=== PATIENT | male | born 1975 | race Caucasian/White ===

== ENCOUNTER → 2019-04-10 10:09 | Outpatient (CLI) | payer OTHER, SELFPAY ==
--- NOTE | 2019-04-10 | DI.CT.S_ITS ---
PROCEDURE: CT ABDOMEN PELVIS WO CON INDICATIONS: Calculus of kidney TECHNIQUE: Noncontrast 5 mm thick sections acquired from the diaphragms to the symphysis. 5 mm thick coronal and sagittal reformats were then performed. For radiation dose reduction, the following was used: automated exposure control, adjustment of mA and/or kV according to patient size. COMPARISON: None. FINDINGS: Image quality: Excellent. Lung bases: Heart size is normal. There is partial visualization of thickening along the right oblique fissure anteriorly, as on series 3 image 1 that measures 6 mm. A small hiatal hernia is incidentally noted. Urinary system: Both kidneys are normal in size. No kidney stones. No hydronephrosis or perinephric fat stranding. Both ureters appear non-dilated throughout their expected courses. Bladder wall thickness is normal; no calcified bladder stones. Other solid organs: Liver is normal in size. Gallbladder has been removed. Pancreas is normal in contours. Spleen is normal in size. No adrenal nodules. Peritoneum and bowel: Gastric bypass changes are seen. Unenhanced bowel loops demonstrate normal wall thickness and caliber. No free fluid or air. Incidental note is made of a normal-appearing appendix. Nodes and vessels: No retroperitoneal or mesenteric adenopathy by size criteria. Aorta and inferior vena cava are normal in caliber. Abdominal wall: No ventral hernias. Pelvis: No free pelvic fluid. No significant inguinal hernias or adenopathy. Bones: No suspicious bony lesions. No vertebral body compression fractures. Focal L5-S1 facet arthropathy can be seen. IMPRESSION: No kidney stones or hydronephrosis can be seen. There is a 6 mm focus of thickening along the right minor fissure, which is regarded to be less likely benign. However, as a conservative measure, please consider a dedicated chest CT for further evaluation for additional potential pulmonary nodules. Incidental note is made of: Small hiatal hernia Cholecystectomy Gastric bypass change Normal appendix Focal facet arthropathy at L5-S1. Dictated by: Todd Agrawal M.D. on 04/10/2019 at 10:11 Approved by: Todd Agrawal M.D. on 04/10/2019 at 10:16
== END ==
PROVIDERS: Family Provider Specialist; PCP Specialist; Visit Provider Urology
DX: N20.0 Calculus of kidney (principal); K44.9 Diaphragmatic hernia without obstruction or gangrene; M47.817 Spondylosis without myelopathy or radiculopathy, lumbosacral region; Z90.49 Acquired absence of other specified parts of digestive tract; Z98.84 Bariatric surgery status
CPT/HCPCS: 74176

== ENCOUNTER → 2022-03-19 09:15 | Outpatient (CLI) | payer OTHER, SELFPAY ==
--- NOTE | 2022-03-19 09:16 | DI.RAD.S_ITS ---
PROCEDURE: XR KNEE LT 3V INDICATIONS: LEFT KNEE PAIN TECHNIQUE: 3 views of the knee were acquired. COMPARISON: None. FINDINGS: Bones: No fractures or dislocations. No suspicious bony lesions. Tricompartment osteophytes. Soft tissues: No joint effusion. No suspicious soft tissue calcifications. IMPRESSION: Degenerative arthritis. No evidence acute bony abnormality of the left knee. If clinical suspicion and/or symptoms persist, further assessment with repeat plain films, or advanced imaging (e.g., CT, MRI, or bone scan) may be helpful for further assessment. Dictated by: Kavon Page M.D. on 03/19/2022 at 9:46 Approved by: Kavon Page M.D. on 03/19/2022 at 9:47
== END ==
PROVIDERS: Family Provider Specialist; PCP Internal Medicine; Referring Provider Physical Medicine & Rehabilitation; Visit Provider Physical Medicine & Rehabilitation
DX: M17.12 Unilateral primary osteoarthritis, left knee (principal); M25.562 Pain in left knee; M54.16 Radiculopathy, lumbar region; M25.551 Pain in right hip; M25.552 Pain in left hip; F90.9 Attention-deficit hyperactivity disorder, unspecified type; F41.9 Anxiety disorder, unspecified; F32.9 Major depressive disorder, single episode, unspecified
CPT/HCPCS: 73562; 99214

== ENCOUNTER → 2022-04-29 18:52 | Outpatient (CLI) | payer OTHER, SELFPAY ==
--- NOTE | 2022-04-29 18:55 | DI.MRI.S_ITS ---
PROCEDURE: MR LUMBAR SPINE WO CON INDICATIONS: Lumbar radiculopathy TECHNIQUE: Noncontrast sagittal T1 spin echo and T2 fast echo, sagittal STIR, and T2 fast spin echo through the lumbar spine. In cases with scoliosis, additional coronal T2 fast spin echo may be performed. COMPARISON: [facility], RG, XR L-SPINE 2-3V, 04/21/2021, 9:44. FINDINGS: Image quality: Excellent. Alignment and Curvature: 5 lumbar type vertebral bodies are present by plain film. Roughly 2 mm of retrolisthesis of L3 on L4. Bone Marrow: Marrow is of normal overall signal. No acute vertebral body compression fractures. Minimal reactive signal throughout the endplates of the lumbar and lower thoracic spine. Spinal Cord: Conus medullaris terminates at the L1 level. Visualized cord demonstrates normal signal and size. Paraspinous Soft Tissues: No paravertebral masses. T12-L1: Normal appearance. L1-L2: Normal appearance. L2-L3: Mild disc desiccation and diffuse disc bulge. Mild facet and ligamentum flavum hypertrophy. Mild canal stenosis. No foraminal stenosis. L3-L4: Mild disc desiccation and diffuse disc bulge. Mild facet and ligamentum flavum hypertrophy. Mild epidural lipomatosis. Mild canal stenosis. Mild bilateral foraminal stenosis. L4-L5: Mild disc desiccation. Mild facet and ligamentum flavum hypertrophy. Mild canal stenosis. Mild bilateral foraminal stenosis. L5-S1: Moderate bilateral facet hypertrophy. No significant canal, or foraminal stenosis. IMPRESSION: 1. Multilevel degenerative disc and facet disease, as well as ligamentum flavum hypertrophy and epidural lipomatosis. 2. Mild multilevel canal and foraminal stenoses. No neural impingement. Dictated by: Marcie Bowden M.D. on 04/30/2022 at 8:20 Approved by: Marcie Bowden M.D. on 04/30/2022 at 8:22
== END ==
PROVIDERS: Family Provider Specialist; PCP Internal Medicine; Referring Provider Physical Medicine & Rehabilitation; Visit Provider Physical Medicine & Rehabilitation
DX: M51.16 Intervertebral disc disorders with radiculopathy, lumbar region (principal); M48.061 Spinal stenosis, lumbar region without neurogenic claudication
CPT/HCPCS: 72148

== ENCOUNTER → 2024-08-28 06:43 | Outpatient (CLI) | payer OTHER, SELFPAY ==
[2024-08-28 08:19] LABS: Add Manual Diff / Slide Review NO; Basophils Absolute Auto 0 /uL (0-100); Basophils Percent Auto 0.7 % (0-2); Eosinophils Absolute Auto 200 /uL (0-450); Eosinophils Percent Auto 3.1 % (2-4); Hematocrit 42.7 % (41-53); Hemoglobin 14.9 g/dL (13.5-17.5); Lymphocytes Absolute Auto 1600 /uL (1100-4500); Lymphocytes Percent Auto 28.3 % (25-40); Mean Corpuscular Hemoglobin 32.9 PG (26-34); Monocytes Absolute Auto 500 /uL (0-900); Monocytes Percent Auto 8.7 % (3-14); Neutrophils Absolute Auto 3200 /uL (1500-7000); Neutrophils Percent Auto 59.2 % (50-75); Platelet Count 316 X10^3/uL (150-400); Red Blood Cell Count 4.54 X10^6/uL (4.5-5.9); Red Cell Distribution Width 12.5 % (11.6-14.8); White Blood Cell Count 5.5 X10^3/uL (4.5-11.0)
[2024-08-28 08:44] LABS: Alanine Aminotransferase 15 IU/L (<50); Albumin 4.7 g/dL (3.5-5.0); Albumin Globulin Ratio 1.9 (1.0-2.8); Alkaline Phosphatase 76 U/L (38-126); Aspartate Aminotransferase 23 IU/L (17-59); BUN Creatinine Ratio 16.8 (6-22); Bilirubin Total 0.5 mg/dL (0.2-1.3); Blood Urea Nitrogen 20 mg/dL (9-20); Calcium 10.3 mg/dL (8.4-10.2); Carbon Dioxide 31 mmol/L (22-32); Chloride 101 mmol/L (98-107); Cholesterol 175 mg/dL (140-199); Estimated Glomerular Filt Rate > 60 mL/min (>60); Globulin 2.5 g/dL (1.7-4.1); Glucose 101 mg/dL (70-100); HDL Cholesterol 57 mg/dL (40-60); HEMOLYSIS < 15 (0-50); LDL Cholesterol Calculated 92 mg/dL (<100); Potassium 4.8 mmol/L (3.4-5.1); Sodium 140 mmol/L (137-145); Total Protein 7.2 g/dL (6.3-8.2); Triglycerides 129 mg/dL (35-150)
[2024-08-29 08:36] LABS: Var-Zoster Immunity Screen Reactive (Non Reactive)
== END ==
PROVIDERS: Family Provider Specialist; PCP Internal Medicine; Referring Provider Internal Medicine; Visit Provider Internal Medicine
DX: Z13.6 Encounter for screening for cardiovascular disorders (principal); Z13.1 Encounter for screening for diabetes mellitus; Z13.220 Encounter for screening for lipoid disorders; M54.9 Dorsalgia, unspecified; G89.29 Other chronic pain; N20.0 Calculus of kidney; D64.9 Anemia, unspecified; B02.9 Zoster without complications
CPT/HCPCS: 36415; 80053; 80061; 85025; 86787

== ENCOUNTER 2024-09-21 09:48 | Day surgery (SDC) | payer OTHER, SELFPAY ==
[2024-09-21 10:11] VITALS: BP 131/86; PULSE 83; RESP 16; TEMP 36.1; O2SAT 100
--- NOTE | 2024-09-21 10:34 | P.HP_ITS ---
History of Present Illness History of Present Illness Date Patient Seen: 09/21/24 Time Patient Seen: 10:35 Chief complaint: Colonoscopy Narrative: healthy 49-year-old white male presents for initial screening colonoscopy. No previous colon screening. No family history colon cancer, Crohn's disease or ulcerative colitis. No change in bowel habits, unexplained weight loss, blood in stool. [facility] Medical History Facet arthropathy, lumbar Bilateral hip pain Lumbar radiculopathy Pulmonary nodules Morbid obesity Sleep apnea (~2005) Abnormal chest xray (~2018) History of bipolar disorder Hip pain Knee pain Shoulder pain (~2014) Chronic back pain (~1991) Kidney stones (~2017) Surgical History Anesthesia History of shoulder surgery (~2018) History of removal of cyst (~2016) Status post laparoscopic cholecystectomy (~2001) History of gastric bypass (~2007) Status post knee surgery (~1988) History of tonsillectomy (~1978) Family History Grandmother Cancer Grandfather No problems noted. Social History Smoking Status: Never smoker alcohol intake: never Meds Home Medications and Allergies Home Medications Medication Instructions Recorded Confirmed Type hydroxyzine pamoate 25 mg capsule 25 - 50 mg PO DAILY PRN 06/29/21 08/27/24 H istory Saffran 88 mg PO DAILY 07/05/23 08/27/24 History lamotrigine 100 mg tablet 100 mg PO DAILY 07/05/23 09/21/24 History multivit,calcium,min-folic acid 1 tab PO DAILY 08/27/24 09/21/24 History 240 mcg-D3 25 mcg-lycop 300 mcg tablet (One A Day Men Complete) sodium sul 1.479 gram-potas ch See Rx Instructions PO PER PKG DIR 09/17/24 09/21/24 Rx 0.188 gram-magnes sul 0.225 gram #24 tabs tablet (Sutab) Allergies Allergy/AdvReac Type Severity Reaction Status Date / Time ketorolac [From Toradol] Allergy Severe Headache Verified 09/21/24 10:09 levofloxacin [From LEVAQUIN] Allergy Unknown Verified 09/21/24 10:09 Review of Systems Review of Systems ROS: Yes All systems reviewed with the patient and are negative except as otherwise documented Constitutional Constitutional: Reports system reviewed and no additional complaints, except as documented Eyes Eyes: Reports system reviewed and no additional complaints, except as documented ENT Ears, Nose, Mouth, and Throat: Yes system reviewed and no additional complaints, except as documented Cardiovascular Cardiovascular: Reports system reviewed and no additional complaints, except as documented Respiratory Respiratory: Reports system reviewed and no additional complaints, except as documented Gastrointestinal Gastrointestinal: Reports system reviewed and no additional complaints, except as documented Genitourinary Genitourinary: Reports system reviewed and no additional complaints, except as documented Musculoskeletal Musculoskeletal: Reports system reviewed and no additional complaints, except as documented Integumentary/Breasts Skin/Breast: Reports system reviewed and no additional complaints, except as documented Neurologic Neurologic: Reports system reviewed and no additional complaints, except as documented Psychiatric Psychiatric: Reports system reviewed and no additional complaints, except as documented Endocrine Endocrine: Reports system reviewed and no additional complaints, except as documented Hematologic/Lymphatic Hematologic/Lymphatic: Reports system reviewed and no additional complaints, except as documented Allergic/Immunologic Allergic/Immunologic: Reports system reviewed and no additional complaints, except as documented Exam Vital Signs (past 8 hours): - 09/21/24 10:11 Temperature 97.0 F L Pulse Rate 83 Respiratory Rate 16 Blood Pressure 131/86 Pulse Oximetry 100 Oxygen Delivery Method Room Air Oxygen Delivery Method Room Air Assessment & Plan Assessment & Plan narrative: Normal risk colon screening. Patient presents for initial screening colonoscopy Risks, benefits, alternatives to colonoscopy explained, including but not limited to bowel perforation or other serious complication requiring surgery at less than 1 in 5000 colonoscopies, abdominal pain, cramping or bleeding and less than 1% of colonoscopies, and the chances that we find a diagnosis that would require further intervention of about 2%. Patient agrees to proceed. Time-Based Coding :: [TOTAL MINUTES] spent with patient and on the chart (including review of chart, obtaining history, exam, reviewing outside data, placing orders, documenting exam and treatment plan, and counseling patient) on [DATE].
--- NOTE | 2024-09-21 11:04 | PM.OP.COLON ---
Operative Date/Time/Diagnoses Date of procedure: 09/21/24 Time of procedure: 11:04 Pre-op diagnosis: Normal risk colon screening Post-op diagnosis: same ( normal colon) Procedure & Clinicians Study performed: colonoscopy, screening Same procedure as scheduled: Yes Indications: age based screening, normal risk Surgeon: Derrick Austin Procedure Notes SCOAP/Timeout: performed Procedure in detail: time-out was performed. Mac was induced. Patient was placed in left lateral decubitus position. The perineum was inspected without any gross abnormality. Lubricated pediatric colonoscope was inserted and advanced to the cecum. The terminal ileum was intubated. The colonoscope was withdrawn slowly inspecting the circumference of the colon. Very small polyps may have been missed, prep quality was adequate. Retroflexed view of the rectum showed small, non prolapsed nonbleeding internal hemorrhoids. The scope was withdrawn the patient was taken to PACU in good condition. Scope withdrawal time: 6 Sedation minutes: 17 Findings: other findings ( Normal colon) Specimen(s): none sent Complications: none Impression: normal colonoscopy Post-procedure Recommendations: Colonoscopy in 10 years Plan for aftercare: follow-up with primary care doctor as needed Follow up: as needed Disposition: PACU
[2024-09-21 11:09] VITALS: BP 100/70; PULSE 86; RESP 16; TEMP 36.2; O2SAT 96
[2024-09-21 11:13] VITALS: BP 112/76; PULSE 79; RESP 16; TEMP 36.2; O2SAT 98
[2024-09-21 11:18] VITALS: BP 112/70; PULSE 74; RESP 16; TEMP 36.2; O2SAT 98
== END 2024-09-21 11:29 | disposition home or self-care (01) ==
PROVIDERS: Family Provider Specialist; PCP Internal Medicine; Referring Provider Surgery; Visit Provider Surgery
PROC: 0DJD8ZZ Inspection of Lower Intestinal Tract, Via Natural or Artificial Opening Endoscopic (ICD-10-PCS; CPT 45378; principal; 2024-09-21 11:00)
DX: Z12.11 Encounter for screening for malignant neoplasm of colon (principal); K64.8 Other hemorrhoids
CPT/HCPCS: 45378; J2704

== ENCOUNTER → 2025-09-11 08:37 | Outpatient (CLI) | payer OTHER, SELFPAY ==
--- NOTE | 2025-09-11 08:40 | DI.MRI.S_ITS ---
PROCEDURE: MR KNEE LT WO CON
== END ==
LOC: MRI 08:40
PROVIDERS: Family Provider Specialist; PCP Internal Medicine; Referring Provider Internal Medicine; Visit Provider Orthopaedic Surgery
DX: S83.272A Complex tear of lateral meniscus, current injury, left knee, initial encounter (principal); S83.242A Other tear of medial meniscus, current injury, left knee, initial encounter; M25.562 Pain in left knee; M25.561 Pain in right knee; M22.42 Chondromalacia patellae, left knee; M25.462 Effusion, left knee; M71.22 Synovial cyst of popliteal space [Baker], left knee
CPT/HCPCS: 73721